=== PATIENT | female | born 1955 | race Caucasian/White ===

== ENCOUNTER 2018-12-29 10:41 | Emergency (ER) | payer OTHER ==
[~2018-12-29] VITALS: Ht 162.6 cm; Wt 104.0 kg
[2018-12-29] MEDS ORDERED: HYDROCODONE/ACETAMINOPHEN 10/325MG TABLET PO ONE (11:45)
[2018-12-29 13:10] VITALS: BP 147/69
== END 2018-12-29 13:17 | disposition home or self-care (01) ==
LOC: ER 10:41
DX: S43.402A Unspecified sprain of left shoulder joint, initial encounter (principal); M54.89 Other dorsalgia; M19.90 Unspecified osteoarthritis, unspecified site; X58.XXXA Exposure to other specified factors, initial encounter; Y93.89 Activity, other specified; Y92.018 Other place in single-family (private) house as the place of occurrence of the external cause
CPT/HCPCS: 73030; 93005; 99283

== ENCOUNTER 2019-08-04 01:53 | Inpatient (IN) | payer OTHER ==
[2019-08-04] VITALS (73 sets, daily range): BP systolic 53–156; BP diastolic 17–83
[~2019-08-04] VITALS: Ht 165.1 cm; Wt 108.4 kg
[2019-08-04] MEDS ORDERED: ONDANSETRON HCL 4MG/2ML INJ IV STA (02:35)
[2019-08-04] MEDS ORDERED: SODIUM CHLORIDE 0.9% 1,000 ML IV ONE (02:35)
[2019-08-04] MEDS ORDERED: DEXAMETHASONE 10 MG/ML VIAL IV ONE (02:45)
[2019-08-04 03:03] LABS: BG BASE EXCESS -3.1 mmol/L (-2.0-2.0); BG CARBOXYHEMOGLOBIN 0.9 % (0.5-1.5); BG DEOXYHEMOGLOBIN 5.7 % (0.0-5.0); BG FRACTION INSPIRED OXYGEN 21; BG HCO3 ACT 20.1 mmol/L (22.0-26.0); BG METHEMOGLOBIN 0.2 % (0.0-1.5); BG OXYGEN SATURATION 94.2 % (92.0-98.5); BG OXYHEMOGLOBIN 93.2 % (94.0-97.0); BG PCO2 30.3 mmHg (35.0-45.0); BG PO2 71.9 mmHg (75.0-100.0); BG SAMPLE SITE RIGHT RADIAL; BG TOTAL HEMOGLOBIN 11.9 g/dL (12.0-18.0); BG VENT MODE ROOM AIR
[2019-08-04 03:12] LABS: BASOPHILS % 0.8 % (0.0-2.0); HEMATOCRIT. 36.8 % (36.0-48.0); HEMOGLOBIN. 11.2 g/dL (12.0-16.0); LYMPHOCYTES % 15.7 % (20.0-50.0); MEAN CORPUSCULAR HEMOGLOBIN 21.7 pg (28.0-32.0); MEAN CORPUSCULAR VOLUME 71.6 fL (81.0-99.0); MEAN PLATELET VOLUME 8.5 fl (7.4-10.4); MONOCYTES % 6.1 % (2.0-8.0); NEUTROPHILS % 76.4 % (40.0-76.0); PLATELET 232 x1000/uL (130-400); RED BLOOD CELL COUNT 5.14 mill/uL (4.2-5.4); RED CELL DISTRIBUTION WIDTH 28.3 % (11.6-14.6)
[2019-08-04 03:14] LABS: CHLORIDE 85 mEq/L (98-107)
[2019-08-04 03:15] LABS: INR 1.2; PROTHROMBIN TIME 12.4 sec (9.6-11.0)
[2019-08-04 03:18] LABS: ETHANOL BLOOD < 10 mg/dL
[2019-08-04] MEDS ORDERED: PIPERACILLIN/TAZ 3.375G PREMIX 50 ML IV ONE (03:45)
[2019-08-04] MEDS ORDERED: VANCOMYCIN 1 G PREMIX 200 ML IV ONE (03:45)
[2019-08-04] MEDS ORDERED: MIDAZOLAM HCL 2 MG/2 ML VIAL IV SCH (04:00)
[2019-08-04] MEDS ORDERED: KETAMINE HCL 50 MG/ML 10ML IV ONE (05:00)
[2019-08-04] MEDS ORDERED: ONDANSETRON HCL 4MG/2ML INJ IV ONE (05:00)
[2019-08-04] MEDS ORDERED: MORPHINE SULFATE 2 MG/ML CPJ (NOT FOR IM USE) IV PRN (09:00)
[2019-08-04] MEDS ORDERED: SODIUM CHLORIDE 0.9% 1,000 ML IV SCH ×2 (09:00→12:28)
[2019-08-04] MEDS ORDERED: ONDANSETRON HCL 4MG/2ML INJ IV PRN (09:00)
[2019-08-04] MEDS ORDERED: MIDAZOLAM HCL 100 MG in DEXT 5% WATER 80 ML IV PRN (10:15)
[2019-08-04] MEDS ORDERED: FENTANYL CITRATE/PF 50MCG/ML 2ML VIAL IV NR (10:15)
[2019-08-04] MEDS ORDERED: SODIUM CHLORIDE 0.9% 10ML VIAL ONE (10:30)
[2019-08-04] MEDS ORDERED: VECURONIUM BROMIDE 10 MG/VIAL IV ONE (10:30)
[2019-08-04] MEDS: FENTANYL CITRATE/PF 500 MCG in SODIUM CHLORIDE 0.9% 40 ML IV PRN ×2 (10:50→15:08)
[2019-08-04 11:28] LABS: BG BASE EXCESS -6.3 mmol/L (-2.0-2.0); BG CARBOXYHEMOGLOBIN 0.7 % (0.5-1.5); BG DEOXYHEMOGLOBIN 1.5 % (0.0-5.0); BG FRACTION INSPIRED OXYGEN 80; BG METHEMOGLOBIN 0.3 % (0.0-1.5); BG OXYGEN SATURATION 98.5 % (92.0-98.5); BG OXYHEMOGLOBIN 97.5 % (94.0-97.0); BG PCO2 42.6 mmHg (35.0-45.0); BG PH 7.289 (7.350-7.450); BG PO2 135.6 mmHg (75.0-100.0); BG SAMPLE SITE LEFT RADIAL; BG TIDAL VOLUME(mL) 550 mL; BG TOTAL HEMOGLOBIN 12.2 g/dL (12.0-18.0); BG VENT MODE VENT - A/C; BG VENT RATE 16 set
[2019-08-04] MEDS ORDERED: PANTOPRAZOLE SODIUM 40 MG/VIAL IV SCH (12:28)
[2019-08-04] MEDS ORDERED: METHYLPREDNISOLONE SOD SUCC 40 MG/ML VIAL IV SCH (12:29)
[2019-08-04] MEDS: IPRATROPIUM/ALBUTEROL 0.5-3(2.5)MG/3ML NEB HHN SCH ×3 (12:44→20:09)
[2019-08-04 13:11] LABS: CHLORIDE 87 mEq/L (98-107)
[2019-08-04 13:18] LABS: PHOSPHORUS 6.8 mg/dL (2.5-4.9)
[2019-08-04] MEDS: PHENYLEPHRINE 40 MG in DEXT 5% WATER 246 ML IV PRN ×2 (13:26→20:31)
[2019-08-04 13:59] LABS: BG BASE EXCESS -5.6 mmol/L (-2.0-2.0); BG CARBOXYHEMOGLOBIN 0.7 % (0.5-1.5); BG DEOXYHEMOGLOBIN 3.2 % (0.0-5.0); BG FRACTION INSPIRED OXYGEN 80; BG HCO3 ACT 19.5 mmol/L (22.0-26.0); BG METHEMOGLOBIN 0.3 % (0.0-1.5); BG OXYGEN SATURATION 96.8 % (92.0-98.5); BG OXYHEMOGLOBIN 95.8 % (94.0-97.0); BG PO2 94.6 mmHg (75.0-100.0); BG SAMPLE SITE RIGHT RADIAL; BG TIDAL VOLUME(mL) 550 mL; BG TOTAL HEMOGLOBIN 11.9 g/dL (12.0-18.0); BG VENT MODE VENT - A/C; BG VENT RATE 16 set
[2019-08-04] MEDS ORDERED: PIPERACILLIN/TAZOBACTAM 2.25 G in DEXTROSE 5% WATER 50 ML IV SCH (14:00)
[2019-08-04 14:13] LABS: HEMATOCRIT. 37.5 % (36.0-48.0); HEMOGLOBIN. 11.2 g/dL (12.0-16.0); MEAN CORPUSCULAR HEMOGLOBIN 21.9 pg (28.0-32.0); MEAN CORPUSCULAR VOLUME 73.4 fL (81.0-99.0); MEAN PLATELET VOLUME 8.6 fl (7.4-10.4); PLATELET 242 x1000/uL (130-400); RED BLOOD CELL COUNT 5.11 mill/uL (4.2-5.4); RED CELL DISTRIBUTION WIDTH 29.2 % (11.6-14.6)
[2019-08-04] MEDS ORDERED: VANCOMYCIN 1 G PREMIX 200 ML IV NR (15:00)
[2019-08-04 15:19] LABS: CLARITY URINE CLOUDY (CLEAR); COLOR URINE YELLOW (YELLOW); KETONES URINE NEGATIVE (NEGATIVE); LEUKOCYTE ESTERASE URINE NEGATIVE (NEGATIVE); NITRITE URINE NEGATIVE (NEGATIVE); OCCULT BLOOD URINE 2+ (NEGATIVE); PROTEIN URINE TRACE (NEGATIVE); SPECIFIC GRAVITY URINE 1.012 (1.005-1.030); UROBILINOGEN URINE 0.2 E.U./dL (0.2-1.0)
[2019-08-04 15:51] LABS: *BARBITURATES SCREEN URINE NEGATIVE (NEGATIVE); *BENZODIAZEPINES SCREEN URINE PRESUMTIVE POSITIVE (NEGATIVE); *COCAINE SCREEN URINE NEGATIVE (NEGATIVE); METHADONE URINE SCREEN NEGATIVE (NEGATIVE)
[2019-08-04 15:52] LABS: *AMPHETAMINES SCREEN URINE NEGATIVE (NEGATIVE); CANNABINOID URINE SCREEN NEGATIVE (NEGATIVE); OPIATES URINE SCREEN NEGATIVE (NEGATIVE); PHENCYCLIDINE URINE SCREEN NEGATIVE (NEGATIVE)
[2019-08-04 15:54] LABS: NUCLEATED RED BLOOD CELLS 1 /100 WBC; PLATELET ESTIMATE NORMAL
[2019-08-04] MEDS ORDERED: MORPHINE SULFATE 100 MG in DEXT 5% WATER 90 ML IV PRN (20:30)
[2019-08-04] MEDS: MORPHINE SULFATE 250 MG in DEXT 5% WATER 240 ML IV PRN (21:20)
[2019-08-05] VITALS (38 sets, daily range): BP systolic 48–91; BP diastolic 29–53
[2019-08-05] MEDS: MORPHINE SULFATE 250 MG in DEXT 5% WATER 240 ML IV PRN ×2 (02:54→07:59)
[2019-08-06 08:07] LABS: *CREATININE RANDOM URINE 76.9 mg/dL (Not Estab.)
== END 2019-08-05 11:14 | disposition expired | DRG 871 ==
LOC: ER 01:53 → MICUSO 04:13 → EDBEDREQ 04:17 → EDBEDREQTM 04:17 → ENRESERV 05:12
PROVIDERS: ADMIT Internal Medicine; ATTEND Internal Medicine
PROC: 5A1935Z Respiratory Ventilation, Less than 24 Consecutive Hours (ICD-10-PCS; principal; 2019-08-04)
PROC: 0BH17EZ Insertion of Endotracheal Airway into Trachea, Via Natural or Artificial Opening (ICD-10-PCS; 2019-08-04)
PROC: 05H533Z Insertion of Infusion Device into Right Subclavian Vein, Percutaneous Approach (ICD-10-PCS; 2019-08-04)
PROC: B546ZZA Ultrasonography of Right Subclavian Vein, Guidance (ICD-10-PCS; 2019-08-04)
DX: A41.9 Sepsis, unspecified organism (principal); G93.41 Metabolic encephalopathy; J96.00 Acute respiratory failure, unspecified whether with hypoxia or hypercapnia; J69.0 Pneumonitis due to inhalation of food and vomit; D68.59 Other primary thrombophilia; E87.2 Acidosis; N17.9 Acute kidney failure, unspecified; C78.7 Secondary malignant neoplasm of liver and intrahepatic bile duct; C79.31 Secondary malignant neoplasm of brain; E87.1 Hypo-osmolality and hyponatremia; C34.01 Malignant neoplasm of right main bronchus; C78.01 Secondary malignant neoplasm of right lung; C78.02 Secondary malignant neoplasm of left lung; Z66 Do not resuscitate; Z51.5 Encounter for palliative care; R91.1 Solitary pulmonary nodule; E86.0 Dehydration; D64.9 Anemia, unspecified; E83.39 Other disorders of phosphorus metabolism; E66.9 Obesity, unspecified; N20.0 Calculus of kidney; I10 Essential (primary) hypertension; L80 Vitiligo; Z86.718 Personal history of other venous thrombosis and embolism; Z90.49 Acquired absence of other specified parts of digestive tract; Z90.710 Acquired absence of both cervix and uterus; Z68.39 Body mass index [BMI] 39.0-39.9, adult
CPT/HCPCS: 31500; 36415; 36600; 71045; 71250; 74176; 76770; 76937; 80048; 80305; 80320; 81003; 82043; 82140; 82375; 82378; 82570; 82805; 82962; 83605; 83735; 83935; 84100; 84145; 84300; 84484; 86850; 86900; 87070; 87804; 93005; 93970; 94002; 94640; 96361; 96365; 96367; 96375; 99291; C1725; C9113; J1100; J2250; J2274; J2370; J2405; J2543; J2920; J3010; J3370; J3490; J7030; J7060; J7620; A4315; G0480